=== PATIENT | male | born 1985 | race African-American/Black ===

== ENCOUNTER 2016-03-21 22:41 | Emergency (ER) | payer OTHER ==
[~2016-03-21] VITALS: Ht 193 cm; Wt 212.0 kg
[2016-03-21 22:43] VITALS: BP 158/98; PULSE 112; RESP 20; TEMP 98.7; O2SAT 98
[2016-03-21] MEDS ORDERED: VENTAER INH (22:55)
[2016-03-21] MEDS ORDERED: AMLO2.5T PO (22:55)
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
[2016-03-22 00:48] LABS: AUTOMATED NEUTROPHIL # 11.2 TH/MM3 (1.8-7.7); BASOPHIL # 0.1 TH/MM3 (0-0.2); BASOPHIL % 0.6 % (0.0-2.0); EOSINOPHIL # 0.1 TH/MM3 (0-0.4); EOSINOPHIL % 0.8 % (0.0-4.0); HEMATOCRIT 45.4 % (39.0-51.0); HEMO FLAGS DIFF FINAL; LYMPH % 14.6 % (9.0-44.0); LYMPHOCYTE # 2.1 TH/MM3 (1.0-4.8); MEAN CELL VOLUME 81.7 FL (80.0-100.0); MEAN CORPUSCULAR HGB CONC 33.1 % (32.0-36.0); MONO % 7.6 % (0.0-8.0); NEUT % 76.4 % (16.0-70.0); PLATELET COUNT 237 TH/MM3 (150-450); RED BLOOD COUNT 5.56 MIL/MM3 (4.50-5.90); WHITE BLOOD COUNT 14.6 TH/MM3 (4.0-11.0)
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
[2016-03-22 01:05] LABS: APTT (PATIENT) 25.2 SEC (24.3-30.1); PROTHROMBIN TIME - PATIENT 11.6 SEC (9.8-11.6)
[2016-03-22 01:16] LABS: BICARBONATE 29.4 MEQ/L (21.0-32.0); POTASSIUM 3.7 MEQ/L (3.5-5.1)
[2016-03-22] MEDS ORDERED: SODIUM CHLOR 0.9% 1000 ML INJ 1,000 ML IV SCH (01:34)
[2016-03-22] MEDS ORDERED: IOHEXOL 350 MG/ML 10 ML VIAL (for RAD DIAG) IV ONE (01:59)
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
[2016-03-22 03:10] VITALS: BP 125/70; PULSE 93; RESP 18; TEMP 98.4; O2SAT 97
== END 2016-03-22 03:28 | disposition home or self-care (01) ==
LOC: NEPB 22:41
DX: R07.89 Other chest pain (principal); R10.9 Unspecified abdominal pain; R73.9 Hyperglycemia, unspecified; V49.40XA Driver injured in collision with unspecified motor vehicles in traffic accident, initial encounter
CPT/HCPCS: 71010; 71260; 72125; 74177; 80048; 85025; 85610; 85730; 99285; J7030; Q9967